=== PATIENT | female | born 1965 | race Caucasian/White ===

== ENCOUNTER 2023-10-07 12:56 | Emergency (ER) | payer BC, OTHER ==
[~2023-10-07] VITALS: Ht 160 cm; Wt 84.3 kg
[2023-10-07 13:08] VITALS: TEMP 98
[2023-10-07 14:01] VITALS: BP 141/83; PULSE 94; RESP 16; O2SAT 98
--- NOTE | 2023-10-07 14:18 | NUR ---
Called pharmacy to bring the gentamycin eye drops.
[2023-10-07] MEDS: gentamicin 0.3% ophthalmic drops 5ML LEFTEYE ONE (14:25)
== END 2023-10-07 14:38 | disposition home or self-care (01) ==
LOC: ER 12:56
DX: S05.02XA Injury of conjunctiva and corneal abrasion without foreign body, left eye, initial encounter (principal); X58.XXXA Exposure to other specified factors, initial encounter; Y93.89 Activity, other specified; Y92.89 Other specified places as the place of occurrence of the external cause; Y99.8 Other external cause status
CPT/HCPCS: 99283

== ENCOUNTER 2024-04-07 20:10 | Emergency (ER) | payer OTHER ==
[~2024-04-07] VITALS: Ht 162.6 cm; Wt 90.0 kg
[2024-04-07] MEDS: LIDOcaine 5% patch TP ONE (21:26)
[2024-04-07 21:29] VITALS: BP 150/90; PULSE 90; RESP 18; TEMP 98.6; O2SAT 99
== END 2024-04-07 21:30 | disposition home or self-care (01) ==
LOC: ER 20:11
DX: M54.50 Low back pain, unspecified (principal)
CPT/HCPCS: 99283; 99284

== ENCOUNTER 2024-08-28 14:35 | Emergency (ER) | payer OTHER ==
[~2024-08-28] VITALS: Ht 160 cm; Wt 96.4 kg
[2024-08-28 14:39] VITALS: BP 130/90; PULSE 90; RESP 14; TEMP 98.4; O2SAT 93
--- NOTE | 2024-08-28 15:26 | RADIOLOGY REPORT ---
CLINICAL INDICATION: FOOT PAIN RIGHT TECHNIQUE: 3 radiographic views of the right foot were obtained. Comparison: None FINDINGS/IMPRESSION: There is no evidence of acute fracture or dislocation. The visualized joint space is well maintained. Small posterior calcaneal bony spur. The alignment is anatomical. There is no radiopaque foreign body.
--- NOTE | 2024-08-28 15:27 | RADIOLOGY REPORT ---
CLINICAL INDICATION: ANKLE PAIN RIGHT TECHNIQUE: 4 radiographic views of the right ankle were obtained. Comparison: None FINDINGS/IMPRESSION: There is no evidence of acute fracture or dislocation. The visualized joint space is well maintained. Small posterior calcaneal bony spur. The alignment is anatomical. There is no radiopaque foreign body.
--- NOTE | 2024-08-28 15:28 | RADIOLOGY REPORT ---
CLINICAL INDICATION: ARM PAIN RIGHT TECHNIQUE: 3 radiographic views of the right forearm were obtained. Comparison: None FINDINGS/IMPRESSION: There is no evidence of acute fracture or dislocation. The visualized joint space is well maintained. The alignment is anatomical. There is no radiopaque foreign body.
--- NOTE | 2024-08-28 16:35 | Physician Documentation ---
History of Present Illness ~ Chief Complaint: Mechanical Fall Stated Complaint: FALL Time Seen by MD: 14:50 OK to notify your PCP?: Yes Primary Medical Doctor: sabi chiu Source: patient, family, RN/MD HPI Patient is seen today with complaints of having accidentally stepped into a hole that then dog does well coming off the portion sustaining a ground level fall and rolling her right ankle and doing so. Patient states she also fell onto her outstretched right arm. She has pain in her right wrist and forearm as well as right ankle and foot. She has no other concern or complaint at this time. She states she is able to bear weight on the right foot. Tetanus within 5 Years?: No Medication Reconciliation Allergies: Coded Allergies: No Known Allergies (Unverified , 08/28/24) Past Medical History Past Medical History: No Pertinent History Past Surgical History: no surgical history Smoking Status: Never smoker Drug Use: none Lives In: Home Review of Systems Constitutional: Denies: chills, fever, weakness Eyes: Denies: pain, blurred vision ENT: Denies: ear pain, nose pain, throat pain, mouth pain Respiratory: Denies: cough, shortness of breath Cardiovascular: Denies: chest pain, palpitations Gastrointestinal: Denies: abdominal pain, nausea, vomiting Genitourinary: Denies: burning, dysuria Female Genitalia: Denies: vaginal discharge, pelvic pain Neurological: Denies: headache, dizziness Musculoskeletal: Denies: pain, swelling Integumentary: Denies: rash, lesions Allergic/Immunologic: Denies: hives, itching Hematologic/Lymphatic: Denies: no symptoms reported Psychiatric: Denies: depression, anxiety Physical Exam Vital Signs: Temperature: 98.4, Source: Oral, Heart Rate: 90, Respiratory Rate: 14, BP: 130/90, Pulse Oximetry: 93, Weight: 96.360 Oxygen Flow Rate: 0 Physical Exam General: Awake and Alert, no acute distress. HEENT: Conjunctiva pink, Sclera clear, Mucus Membranes moist. Neck: Supple without masses and tenderness. Resp: Unlabored. Lungs clear to auscultation bilaterally. Heart: Regular Rate and rhythm, normal S1 and S2 without murmur, rub or gallop. Musculoskeletal: Patient on exam has some swelling and ecchymosis on the lateral aspect of her right foot the dorsum just distal to the lateral malleoli. Patient has no significant tenderness to palpation of the lateral malleoli but she does have tenderness to palpation of this area of swelling in the dorsum of her lateral foot. She is neurovascularly intact distally. Motor function intact distally. Strength intact. Patient has full range of motion of the right upper extremity of the right wrist with no significant swelling and no significant tenderness to palpation and is neurovascularly intact of the right upper extremity. Extremities: No cyanosis,clubbing or edema. Skin: Warm and Dry. Progress Results/Orders Results/Orders Vital Signs 08/28/24 14:39 Temp 98.4 Pulse 90 Resp 14 B/P (MAP) 130/90 Pulse Ox 93 O2 Flow Rate 0 EKG/XRAY/CT/US/VASC/MRI Bone/Soft Tissue X-Ray (Ext.) : Additional Comment X-rays of right forearm and wrist and x-rays of right foot and ankle interpreted by myself today show no sign of acute fracture, bones in anatomic alignment, no osteolytic or blastic lesions. DIAGNOSTIC RADIOLOGY Patient: JOE SUBRAMANIAN Medical Record: [id number] [facility] : 1965, Age: 58 Sex: Female Location: ER Patient Status: [facility] ER Service Date/Time: 08/28/241442 Ordering Physician: KATIE TAVAREZ MD Exam: FOOT, COMPLETE (3VW MIN) CLINICAL INDICATION: FOOT PAIN RIGHT TECHNIQUE: 3 radiographic views of the right foot were obtained. Comparison: None FINDINGS/IMPRESSION: There is no evidence of acute fracture or dislocation. The visualized joint space is well maintained. Small posterior calcaneal bony spur. The alignment is anatomical. There is no radiopaque foreign body. Electronically Signed by:ANTOINETTE LOCK DO Date & Time: 08/28/24 1524 Dictated by: ANTOINETTE LOCK DO Dictation date and time: 08/28/24 1524 Primary Care Provider: NO PRIMARY CARE PROVIDER cc: KATIE TAVAREZ MD ~ DIAGNOSTIC RADIOLOGY Patient: JOE SUBRAMANIAN Medical Record: [id number] [facility] : 1965, Age: 58 Sex: Female Location: ER Patient Status: REG ER Service Date/Time: 08/28/24 1443 Ordering Physician: KATIE TAVAREZ MD Exam: ANKLE, COMPLETE(3VW MIN) CLINICAL INDICATION: ANKLE PAIN RIGHT TECHNIQUE: 4 radiographic views of the right ankle were obtained. Comparison: None FINDINGS/IMPRESSION: There is no evidence of acute fracture or dislocation. The visualized joint space is well maintained. Small posterior calcaneal bony spur. The alignment is anatomical. There is no radiopaque foreign body. Electronically Signed by:ANTOINETTE LOCK DO Date & Time: 08/28/241524 Dictated by: ANTOINETTE LOCK DO Dictation date and time: 08/28/24 152 Primary Care Provider: NO PRIMARY CARE PROVIDER cc: KATIE TAVAREZ MD ~ DIAGNOSTIC RADIOLOGY Patient: JOE SUBRAMANIAN Medical Record: [id number] [facility] : 1965, Age: 58 Sex: Female Location: ER Patient Status: REG ER Service Date/Time: 08/28/24 1508 Ordering Physician: KATIE TAVAREZ MD Exam: FOREARM,INCL.ONE JOINT CLINICAL INDICATION: ARM PAIN RIGHT TECHNIQUE: 3 radiographic views of the right forearm were obtained. Comparison: None FINDINGS/IMPRESSION: There is no evidence of acute fracture or dislocation. The visualized joint space is well maintained. The alignment is anatomical. There is no radiopaque foreign body. Electronically Signed by:ANTOINETTE LOCK DO Date & Time: 08/28/241524 Dictated by: ANTOINETTE LOCK DO Dictation date and time: 08/28/241524 Primary Care Provider: NO PRIMARY CARE PROVIDER cc: KATIE TAVAREZ MD ~ Medical Decision Making Findings Patient is seen today with complaints of having accidentally stepped into a hole that then dog does well coming off the portion sustaining a ground level fall and rolling her right ankle and doing so. Patient states she also fell onto her outstretched right arm. She has pain in her right wrist and forearm as well as right ankle and foot. She has no other concern or complaint at this time. She states she is able to bear weight on the right foot. Patient did have x-rays taken of right forearm as well as right ankle and foot that showed no sign of acute fracture. Patient will follow up with primary care in 7-10 days if no better for repeat x-rays. Patient will advance activity level as tolerated. Patient will rest, ice, compress, elevate 20 minutes on 20 minutes off over the next 48-72 hours. Return to ED with any worsening, concerning symptoms. Departure Disposition: HOME / SELF CARE / HOMELESS Impression: Primary Impression: Ankle sprain Qualified Codes: S93.491A - Sprain of other ligament of right ankle, initial encounter Additional Impression: Fall Qualified Codes: W19.XXXA - Unspecified fall, initial encounter Condition: Stable Discharge Instructions: Fall Prevention in the Home, Adult, [id number] Additional Instructions: Patient did have x-rays taken of right forearm as well as right ankle and foot that showed no sign of acute fracture. Patient will follow up with primary care in 7-10 days if no better for repeat x-rays. Patient will advance activity level as tolerated. Patient will rest, ice, compress, elevate 20 minutes on 20 minutes off over the next 48-72 hours. Return to ED with any worsening, concerning symptoms. Referrals: NO PRIMARY CARE PROVIDER (PCP) Signature Scribe Signature: No scribe Attestation: No scribe CHRIS OLVERA PAC Aug 28, 2024 16:35
== END 2024-08-28 16:49 | disposition home or self-care (01) ==
LOC: ER 14:36
DX: S93.491A Sprain of other ligament of right ankle, initial encounter (principal); X50.1XXA Overexertion from prolonged static or awkward postures, initial encounter; Y93.89 Activity, other specified; Y92.89 Other specified places as the place of occurrence of the external cause; Y99.8 Other external cause status
CPT/HCPCS: 73090; 73610; 73630; 99284; A6449

== ENCOUNTER 2024-09-01 13:44 | Emergency (ER) | payer OTHER ==
[~2024-09-01] VITALS: Ht 160 cm; Wt 100.0 kg
--- NOTE | 2024-09-01 14:00 | ELECTROCARDIOGRAPH REPORT ---
[facility] Test Date: 2024-09-01 Test Time: 13:57:18 Pat Name: JOE SUBRAMANIAN Department: [facility]-ER Patient ID: [id number] Room: Gender: F [employer]: : 1965 Requested By: KATIE TAVAREZ Order Number: [id number] Reading MD: Dr. Davian Martinez Measurements Intervals [place] Rate: 78 P: 14 OK: 128 QRS: 19 QRSD: 85 T: 18 QT: 363 QTc: 414 Interpretive Statements Sinus rhythm Baseline wander in lead(s) I,V4,V5 Electronically Signed On 09-01-2024 22:27:[address] Davian Martinez Please click the below link to view image of tracing.
--- NOTE | 2024-09-01 14:25 | RADIOLOGY REPORT ---
DI CHEST,TWO VIEWS, HISTORY: CP COMPARISON: None None TECHNICAL DATA: 2 view of the chest was obtained. FINDINGS: Lines and tubes: None Cardiomediastinal silhouette: normal Pulmonary vasculature: normal Lung expansion: normal Lung airspace: normal Lung interstitium: normal Pleura: normal Pneumothorax: no Bones: Unremarkable Other: no IMPRESSION: No acute intrathoracic abnormality.
[2024-09-01 14:26] LABS: MEAN PLATELET VOLUME 8.2 FL (7.4-10.4); RED CELL DISTRIBUTION WIDTH 15.4 % (11.5-14.5)
[2024-09-01 14:46] LABS: CREATININE 0.76 MG/DL (0.40-0.90); PRO BRAIN NATRIURETIC PEPTIDE 133 PG/ML (0-125); TOTAL CARBON DIOXIDE 27.8 MMOL/L (24-32); eCRCL 64 ML/MIN; eGFR 77 ML/MIN
--- NOTE | 2024-09-01 15:44 | Physician Documentation ---
History of Present Illness ~ Chief Complaint: Chest Pain Stated Complaint: CP Time Seen by MD: 14:48 Primary Medical Doctor: sabi chiu Source: patient Mode of Arrival: POV Exam Limitations: no limitations HPI Chief Complaint: Right chest pain Caveat: None Independent Historians: None History of Present Illness: Patient is a 59-year-old woman comes in complaining of severe sharp upper chest pain. Pain is worse with movement, worse with coughing, laughing and breathing. Patient was seen in the ER here on August 28 after having fallen injuring her right forearm and right foot and ankle. At that time she did not have any or noticed any chest pain. Patient had fallen o nto her right side. On August 30 patient's pain in the right ankle and foot resolved and that is when she noticed she had pain in the right upper chest. On August 31 she developed some nausea and vomiting last vomited last evening. Today the patient has been able to eat and keep fluids down. Nausea appears to have resolved. Review of systems: All systems were reviewed and are negative except for what is indicated in the history of present illness. Past Medical History: None per patient Past Surgical History: None Social History: Occasional alcohol, no tobacco use, no drug use Medications: Reviewed as documented Nursing Notes Allergies: Reviewed as documented in Nursing Notes Tetanus within 5 Years?: No Allergies: Coded Allergies: No Known Allergies (Unverified , 09/01/24) Active Prescriptions See Medication Reconciliation Form. Medication Reconciliation Scheduled PRN ONDANSETRON ODT 4mg tablet (Ondansetron Odt), 1 TAB PO Q6H PRN PRN for nausea/vomiting Past Medical History Past Medical History: No Pertinent History Past Surgical History: no surgical history Drug Use: none Lives In: Home Review of Systems All Other Systems at this time: Reviewed and Negative ROS Patient denies any other acute symptoms other than above. All other systems are negative Physical Exam Vital Signs: RN Vital Signs have been reviewed: Yes, Temperature: 96.8, Source: Temporal, Heart Rate: 75, Respiratory Rate: 14, BP: 134/83, Pulse Oximetry: 97, Weight: 100.050 Oxygen Flow Rate: 0 Pulse Oximetry Reflects: adequate oxygenation Physical Exam General Appearance: MILD DISTRESS HEENT: Normal OP, moist oral mucosa, PERRL, EOMI, HEAD AND FACE. TRAUMATIC Neck: supple, normal ROM, trachea midline Pulmonary: No respiratory distress, CTA, BS equal Cardiac: RRR, no murmur, rub or gallop, GI: nondistended, soft, nontender, normal bowel sounds, no guarding, no rebound CHEST: OUTWARDLY NORMAL-APPEARING CHEST, NO CREPITUS, PATIENT IS TENDER OVER THE CENTRAL UPPER RIGHT CHEST. NO ECCHYMOSIS. PAIN IS REPRODUCIBLE WITH PA LPATION Extremities: normal ROM, ECCHYMOSIS TO RIGHT FOREARM Skin: intact, dry, warm, no rashes Neuro: AAOx3, speech is clear, no focal motor weakness Psych: normal affect, good eye contact, no apparent hallucination, normal speech Progress Results/Orders Results/Orders Orders - KATIE TAVAREZ MD Monitor (09/01/24 13:53) Saline Lock (09/01/24 13:53) Oxygen (09/01/24 13:53) Chest,Two Views (09/01/24 14:15) Completed Orders - KATIE TAVAREZ MD Cbc/Diff (09/01/24 13:53) BMP (09/01/24 13:53) PBNP (09/01/24 13:53) Electrocardiogram (09/01/24 13:53) Hs Troponin I W Calculations (09/01/24 13:53) Chest,Two Views (09/01/24 14:15) Ketorolac Trometh 15mg/Ml Vial (Toradol (09/01/24 15:45) Ondansetron Inj. (Zofran 4mg/2ml Vial) (09/01/24 15:45) Hydrocodone/Apap 10/325 ([place] 10/325mg (09/01/24 15:45) Medications Received in ER Medications (Trade) Dose Ordered Sig/Eulogio Route PRN Reason Start Time Stop Time Status Last Admin Dose Admin (Toradol injection) 15 mg ONCE ONCE IV 09/01/24 15:45 09/01/24 15:47 DC 09/01/24 15:55 15 MG (Zofran 4mg/2ml vial) 4 mg ONCE ONCE IV 09/01/24 15:45 09/01/24 15:47 DC 09/01/24 15:54 4 MG (Or[place] 10/325mg tab) 1 tab ONCE ONCE PO 09/01/24 15:45 09/01/24 15:47 DC 09/01/24 15:55 1 TAB Vital Signs 09/01/24 09/01/24 09/01/24 09/01/24 13:49 14:49 14:51 15:55 Temp 96.8 Pulse 82 75 Resp 18 12 14 15 B/P (MAP) 162/92 134/83 (100) Pulse Ox 97 97 O2 Flow Rate 0 0 09/01/24 09/01/24 09/01/24 15:55 15:59 16:22 Temp 96.8 96.8 Pulse 72 78 Resp 15 17 16 B/P (MAP) 133/88 (103) 138/87 Pulse Ox 97 96 O2 Flow Rate 0 Laboratory Tests Test 09/01/24 14:06 White Blood Count 7.8 Red Blood Count 4.53 Hemoglobin 13.6 Hematocrit 41.0 Mean Corpuscular Volume 90.4 Mean Corpuscular Hemoglobin 30.1 Mean Corpuscular Hemoglobin Concent 33.3 Red Cell Distribution Width 15.4 H Platelet Count 280 Mean Platelet Volume 8.2 Neutrophils (%) (Auto) 65.1 Lymphocytes (%) (Auto) 23.7 Monocytes (%) (Auto) 8.3 Eosinophils (%) (Auto) 2.5 Basophils (%) (Auto) 0.4 Neutrophils # (Auto) 5.1 Lymphocytes # (Auto) 1.9 Monocytes # (Auto) 0.7 Eosinophils # (Auto) 0.2 Basophils # (Auto) 0.0 CBC Comment Sodium Level 141 Potassium Level 4.0 Chloride Level 106 Carbon Dioxide Level 27.8 Anion Gap 7 L Blood Urea Nitrogen 13 Creatinine 0.76 Estimated GFR/1.73 m2 77 BUN/Creatinine Ratio 17.1 Glucose Level 108 H Calcium Level 9.1 Troponin I High Sensitivity < 4 L Troponin I High Sens Percent Delta Troponin I Hi Sens Absolute Change Pro-B-Type Natriuretic Peptide 133 H Albumin 3.6 Chemistry Comments Medical Decision Making Additional info obtained from: old records Findings Differential diagnosis includes but is not limited to: Rib fracture, pneumothorax, pulmonary embolus, chest wall contusion, acute coronary syndrome, musculoskeletal pain EKG independent interpretation: Performed at 1:57 a.m. p.m.: Normal sinus rhythm, heart rate 78, normal axis, normal ST segments Chest x-ray, single view, indication: Chest pain Independent interpretation: Lungs are clear, normal mediastinum, normal cardiac silhouette, no acute cardiopulmonary process. No place rib fracture identified. Laboratory data independent interpretation: CBC: Normal CMP: Normal Troponin: <4 Pro BNP: 133 Emergency department course/medical decision-making: Patient presents with right chest wall pain. This appears to be musculoskeletal. It is unclear what cause this pain and whether it is related to the fall two days prior to the onset of pain. There was no evidence of pneumothorax or displaced rib fracture radiographically. Patient's lab work imaging and EKG are normal. Patient is not thought to be having an acute coronary syndrome. Patient will be given Toradol 15 mg IV, Zofran 4 mg IV and [place] 10 mg p.o.. Patient has had associated nausea and vomiting. It isn't clear what is causing that either. Patient has a normal abdominal exam. She is afebrile and hemodynamically stable. Patient does not require additional imaging. There was no evidence of a medical or surgical emergency. Patient's symptoms will be treated using [place] and Zofran. Prescriptions for both we will be ordered. Patient is stable for discharge. Departure Time of Disposition: 16:10 Disposition: 01 HOME / SELF CARE / HOMELESS Impression: Primary Impression: Chest wall pain Condition: Stable Discharge Instructions: Chest Wall Pain Prescriptions Hydrocodone Bit/Acetaminophen (Hydrocodone-Apap 10-325 Tablet) 10mg/325mg Tablet 1 TAB PO TID PRN PRN for pain for 5 Days, #15 TAB Prov: KATIE TAVAREZ MD 09/01/24 ONDANSETRON ODT 4mg tablet (ONDANSETRON ODT) 4 Mg Tab.rapdis 1 TAB PO Q6H PRN PRN for nausea/vomiting for 4 Days, #16 TAB 0 Refills Prov: KATIE TAVAREZ MD 09/01/24 Education Educated: Patient Educated regarding: diagnosis, treatment, need for follow up Signature Scribe Signature: No scribe Attestation: No scribe KATIE TAVAREZ MD Sep 01, 2024 15:44
[2024-09-01] MEDS: ondansetron/PF 4mg/2ml inj IV ONE (15:54)
[2024-09-01] MEDS: ketorolac trometh 15mg/ml vial 15 MG/ML ML IV ONE (15:55)
[2024-09-01] MEDS: HYDROcodone/acetaminophen 10/325mg tab PO ONE (15:55)
[2024-09-01] MEDS ORDERED: HYDR-3973 PO ×2 (16:11→16:47)
[2024-09-01] MEDS ORDERED: ONDA-243 PO (16:11)
[2024-09-01 16:22] VITALS: BP 138/87; PULSE 78; RESP 16; TEMP 96.8; O2SAT 96
== END 2024-09-01 16:27 | disposition home or self-care (01) ==
LOC: ER 13:44
DX: R07.89 Other chest pain (principal); R05.9 Cough, unspecified; R06.02 Shortness of breath
CPT/HCPCS: 36415; 71046; 80048; 83880; 84484; 85025; 93005; 96374; 96375; 99285; J1885; J2405

== ENCOUNTER 2024-12-14 14:42 | Emergency (ER) | payer OTHER ==
[~2024-12-14] VITALS: Ht 162.6 cm; Wt 99.2 kg
[~2024-12-14 14:42] MED LIST: ONDA-243 PO
[2024-12-14 14:47] VITALS: BP 135/97; PULSE 93; RESP 20; TEMP 97.5; O2SAT 96
[2024-12-14] MEDS ORDERED: SULF1TAB49 PO (15:38)
--- NOTE | 2024-12-14 15:39 | Physician Documentation ---
History of Present Illness ~ Chief Complaint: Finger pain Stated Complaint: FINGER PAIN Time Seen by MD: 15:10 OK to notify your PCP?: Yes Primary Medical Doctor: sabi chiu Source: patient Mode of Arrival: POV Exam Limitations: no limitations HPI 59-year-old right-handed female with left 4th digit pain that she states is localized around her nail plate where she has redness and swelling. These symptoms started about a week ago no precipitating injury or event. She states she has been treating it with soaking her hand and hydrogen peroxide as well as Neosporin ointment and a few time she has opened up the area with a needle in she states some purulent fluid has come out. She denies any decrease in range motion of her finger and she states as long as she is not touching the area she does not have any pain. Tetanus within 5 years: No Medication Reconciliation Allergies: Coded Allergies: No Known Allergies (Unverified , 12/14/24) Scheduled PRN ONDANSETRON ODT 4mg tablet (Ondansetron Odt), 1 TAB PO Q6H PRN PRN for nausea/vomiting Past Medical History Past Medical History: No Pertinent History Past Surgical History: no surgical history Drug Use: none Lives In: Home Review of Systems All Other Systems at this time: Reviewed and Negative Physical Exam Vital Signs: Temperature: 97.5, Source: Temporal, Heart Rate: 93, Respiratory Rate: 20, BP: 135/97, Pulse Oximetry: 96, Weight: 99.200 Oxygen Flow Rate: 0 Physical Exam General Appearance: Alert, WD/WN. NAD. HEENT: NCAT, PERRL, EOMI. Neck: Supple, trachea midline. Lungs: Breathing unlabored Extremities: Left 4th digit: nail plate intact, there is erythema and edema ju st immediately around the nail plate, ttp at the medial distal aspect of the nailplate where there is some lal crusting. AROM of digit is full. Neurological: Alert and oriented x4, normal gait. Psychiatric: Affect congruent with mood. Progress Results/Orders Results/Orders Vital Signs 12/14/24 14:47 Temp 97.5 Pulse 93 Resp 20 B/P (MAP) 135/97 Pulse Ox 96 O2 Flow Rate 0 Medical Decision Making Additional information obtaine: N/A Findings n/a General Diff Dx:Considerations: Unlikely: Other Shoulder Diff Dx:Consideration: Unlikely: Other Elbow Diff Dx:Considerations: Unlikely: Other Wrist Diff Dx:Considerations: Unlikely: Other Hand Diff Dx:Considerations: Unlikely: Other Finger Diff Dx:Considerations: Include: Abrasion, Cellulitis, Contusion, Dislocation, Fracture, Hematoma, Laceration, Neurovascular injury, Open fracture, Subungual hematoma Departure Time of Disposition: 15:36 Disposition: 01 HOME / SELF CARE / HOMELESS Impression: Primary Impression: Paronychia of finger Qualified Codes: L03.012 - Cellulitis of left finger Condition: Stable Discharge Instructions: Paronychia Additional Instructions: Continue with soaking her finger in hydrogen peroxide or you could do Epson salts to draw out the infection there really is not enough edema to warrant an incision and drainage here in the ER but if it is increasing in swelling and redness return so we can re-evaluate for this. I sent an antibiotic to your pharmacy. Referrals: NO PRIMARY CARE PROVIDER (PCP) Prescriptions Sulfamethoxazole/Trimethoprim (Bactrim Ds Tablet) 800 Mg-160 Mg Tablet 1 TAB PO Q12H for 7 Days, #14 TAB Prov: RONNI HEARN 12/14/24 Education Educated: Patient Educated regarding: diagnosis, treatment, need for follow up Signature Scribe Signature: x Attestation: RONNI Maurer Dec 14, 2024 15:39
== END 2024-12-14 15:49 | disposition home or self-care (01) ==
LOC: ER 14:42
DX: L03.012 Cellulitis of left finger (principal)
CPT/HCPCS: 99283